=== PATIENT | female | born 1980 | race Caucasian/White ===

== ENCOUNTER 2019-01-14 12:56 | Emergency (ER) | payer OTHER, SELFPAY ==
--- NOTE | 2019-01-14 14:01 | EDM.PDOC ---
ED HPI GENERAL MEDICAL PROBLEM - General Chief Complaint: Head Injury Stated Complaint: FELL TWO WEEKS AGO AND INJURED HEAD Time Seen by Provider: 01/14/19 13:18 Source of Information: Reports: Patient, RN Notes Reviewed History Limitations: Reports: No Limitations - History of Present Illness INITIAL COMMENTS - FREE TEXT/NARRATIVE: Patient is a 38-year-old female who presents to the ED for the evaluation of a head injury. The patient states that roughly 2 weeks ago she fell in her garage and ended up hitting her Cipro scalp on the cement floor. She denies any loss of consciousness but did see stars directly after the incident. She was somewhat nauseous after this fall but did not have any vomiting. Patient has noticed a dull ache in this area and around 5 out of 10 every day however the pain worsened today and is now an 8 out of 10. The pain is located mainly in the base of her skull and the top of her neck. She denies any blurred vision , double vision, headaches, complains more of just a pressure in this area. She denies any chance of being and she's had a hysterectomy. She took a few doses of ibuprofen a day or 2 after the accident but has not taken any sort of pain medications for this since then. The present in the room appreciates that she is acting normal for herself. Posterior Head Pain Score (Numeric/FACES): 8 - Related Data Allergies Allergy/AdvReac Type Severity Reaction Status Date / Time No Known Allergies Allergy Verified 01/14/19 13:27 Home Meds: Home Meds Albuterol [Ventolin HFA] 01/14/19 [History] Orphenadrine [Norflex] 100 mg PO BID PRN #20 tab 01/14/19 [Rx] predniSONE [Deltasone] 20 mg PO ASDIRECTED #15 tablet 01/14/19 [Rx] Past Medical History Other HEENT History: deviated septum Cardiovascular History: Reports: None Respiratory History: Reports: Asthma, COPD Gastrointestinal History: Reports: None Genitourinary History: Reports: None Other CARE TRAINER History: hysterectomy Musculoskeletal History: Reports: None Neurological History: Reports: None Psychiatric History: Reports: None Other Endocrine/Metabolic History: lympnode removal Hematologic History: Reports: None Immunologic History: Reports: None Oncologic (Cancer) History: Reports: Cervix, Lymphoma Dermatologic History: Reports: None ED ROS GENERAL - Review of Systems Review Of Systems: See Below Constitutional: Reports: No Symptoms HEENT: Denies: Dental Pain, Ear Discharge, Ear Pain, Vision Change Respiratory: Denies: Shortness of Breath Cardiovascular: Denies: Chest Pain Endocrine: Reports: No Symptoms GI/Abdominal: Reports: Nausea. Denies: Abdominal Pain, Vomiting Musculoskeletal: Reports: Neck Pain (superior neck pain), Other (occiptial head pain/pressure) Skin: Reports: No Symptoms Neurological: Denies: Confusion, Dizziness, Headache, Pre-Existing Deficit, Seizure, Syncope, Trouble Speaking, Difficulty Walking, Gait Disturbance Psychiatric: Reports: No Symptoms Hematologic/Lymphatic: Reports: No Symptoms ED EXAM, HEAD INJURY - Physical Exam Exam: See Below Exam Limited By: No Limitations General Appearance: Alert, WD/WN, No Apparent Distress Head: Atraumatic, Normocephalic. No: Scalp Ecchymosis, Scalp Hematoma, Villar' s Sign, Raccoon Eyes Nexus Criteria: Posterior, Midline Cervical Tenderness (she noted there was a twinge of pain at palpation of superior cervical spine). No: Evidence of Intoxication, Altered Level of Consciousness, Focal Neurological Deficit, Painful Distraction Injuries Eyes: Bilateral Eye: EOMI, Normal Inspection, PERRL Ears: Normal External Exam, Normal Canal, Hearing Grossly Normal, Normal TMs Nose: Normal Inspection, Normal Mucousa, No Blood Throat/Mouth: Normal Inspection, Normal Lips, Normal Teeth, Normal Gums, Normal Oropharynx, Normal Voice, No Airway Compromise Neck: Non-Tender, Full Range of Motion (pt states that she feels "pulling" in the posterior neck when she nods her head both up and down.), Normal Alignment, Normal Inspection, Muscle Spasm, Tender Midline (superior C spine) Respiratory: No Respiratory Distress, Lungs Clear, Normal Breath Sounds, No Accessory Muscle Use, Chest Non-Tender Cardiovascular: Normal Peripheral Pulses, Regular Rate, Rhythm, No Murmur GI/Abdominal Exam: Normal Bowel Sounds, Soft, Non-Tender, No Distention, No Mass Back Exam: Normal Inspection, Full Range of Motion Extremities: Normal Inspection, Normal Capillary Refill Neurologic: supervisor inspection and testing II-XII nml As Tested, No Motor/Sensory Deficits, Alert, Normal Mood/Affect, Oriented x 3 Skin: Normal Color, Warm/Dry - Santiago Coma Score Best Eye Response (Santiago): (4) Open Spontaneously Best Verbal Response (Sharon): (5) Oriented Best Motor Response (Santiago): (6) Obeys Commands Sharon Total: 15 Course - Vital Signs Last Recorded V/S: Last Vital Signs Temp 96.7 F 01/14/19 13:23 Pulse 85 01/14/19 13:23 Resp 18 01/14/19 13:23 BP 147/77 H 01/14/19 13:23 Pulse Ox 97 01/14/19 13:23 - Orders/Labs/Meds Orders: Active Orders 24 hr Category Date Time Status Cervical Spine wo Cont [CT] Stat Exams 01/14/19 13:54 Ordered Head wo Cont [CT] Stat Exams 01/14/19 13:54 Ordered Meds: Medications Discontinued Medications Generic Name Dose Route Start Last Admin Trade Name Henrry PRN Reason Stop Dose Admin Ketorolac Tromethamine 60 mg 01/14/19 14:53 Toradol IM 01/14/19 14:54 ONETIME ONE Orphenadrine Citrate 100 mg 01/14/19 14:53 Norflex PO 01/14/19 14:54 ONETIME ONE - Re-Assessments/Exams Free Text/Narrative Re-Assessment/Exam: 01/14/19 14:02 Patient presents to the ED for the evaluation of a head injury. Patient took only a small dose ibuprofen after the initial fall. She has not taken much ibuprofen since then. Although there is low suspicion for any sort of fracture at this time or other acute abnormality, the insists on having imaging done of the patient's head and neck to make sure there is no acute abnormalities that are being overlooked. I did discuss the benefits and risks of increased radiation, and they are willing to accept the risk and do want the CT done of the head and neck to rule out any abnormalities. 01/14/19 15:01 CT is done, and demonstrate no acute abnormality of the head or neck, there is mild degenerative disc disease of the cervical spine noted. I did order 60 mg IM Toradol and 100 mg by mouth Norflex for initial management regarding her pain after normal imaging results. Departure - Departure Time of Disposition: 15:17 Disposition: Home, Self-Care 01 Condition: Fair Clinical Impression: Neck pain, Arthritis of neck Head injury, acute Qualifiers: Encounter type: initial encounter Qualified Code(s): S09.90XA - Unspecified injury of head, initial encounter - Discharge Information *PRESCRIPTION DRUG MONITORING PROGRAM REVIEWED*: No *COPY OF PRESCRIPTION DRUG MONITORING REPORT IN PATIENT RENE: No Prescriptions: Orphenadrine [Norflex] 100 mg PO BID PRN #20 tab PRN Reason: Spasms predniSONE [Deltasone] 20 mg PO ASDIRECTED #15 tablet Instructions: Musculoskeletal Pain Referrals: Yessenia Morillo PA-C [Primary Care Provider] - Forms: ED Department Discharge Additional Instructions: You were evaluated in the ED today for your head injury and neck pain. Imaging done today or appreciates no acute abnormalities in the head or neck, but did reveal some mild arthritic-like changes in the neck. You were given some medications for this, a muscle relaxer, Norflex please take one tab twice a day as needed for also spasms. Prednisone as directed until the course is done for inflammation relief. These were electronically sent to the pharmacy located near [facility]. You may also try heat packs or ice packs to the area to see if this does not help provide further relief, or try massage therapy. Please return to the ED if your symptoms should change or worsen. - My Orders Last 24 Hours: My Active Orders 01/14/19 13:54 Cervical Spine wo Cont [CT] Stat Head wo Cont [CT] Stat - Assessment/Plan Last 24 Hours: My Active Orders 01/14/19 13:54 Cervical Spine wo Cont [CT] Stat Head wo Cont [CT] Stat
[2019-01-14] MEDS ORDERED: Orphenadrine 100 MG Tab.ER PO ONE (14:53)
[2019-01-14] MEDS ORDERED: Ketorolac 60 MG/2 ML SDV IM ONE (14:53)
--- NOTE | 2019-01-18 08:48 | CT ---
Head CT Technique: Multiple axial sections through the brain were obtained. Intravenous contrast was not utilized. Comparison: No prior intracranial imaging. Findings: Ventricles along with basal cisterns and sulci over the convexities are within normal limits for the patient's age. No abnormal parenchymal densities are seen. No evidence of intracranial hemorrhage. No midline shift or mass effect is seen. Bone window settings were reviewed which show no acute calvarial abnormality. Visualized mastoid and paranasal sinuses are clear. Impression: 1. Nothing acute is appreciated on noncontrast head CT exam. Diagnostic code #1 I agree with preliminary report from [facility], finalized on 01/14/19, 3:36 PM Central Time
--- NOTE | 2019-01-18 08:48 | CT ---
CT cervical spine Technique: Multiple axial sections were obtained from above C1 inferiorly to the top of T3. Reconstructed sagittal and coronal images were reviewed. Comparison: No prior cervical spine imaging. Findings: Moderate disc space narrowing is noted at C4-C5, C5-C6 and C6-C7. Mild disc space narrowing is noted posteriorly at C7-T1. Slight posterior osteophytes are seen at C5-C6 and more prominent at C6-C7. Mild anterior osteophytes are noted at C5-C6 and C6-C7. Slight kyphosis is noted within the cervical spine on the reconstructed sagittal images. No fracture is identified. Mild narrowing of the right neural foramen is noted at C5-C6. Slightly inhomogeneous appearance of the right lobe of the thyroid gland which is nonspecific. Impression: 1. Findings believed to be incidental as noted above. 2. Nothing acute is appreciated on CT study of the cervical spine. Diagnostic code #2 I agree with preliminary report from [facility], finalized on 01/14/19, 3:50 PM Central Time
== END 2019-01-14 15:38 | disposition home or self-care (01) ==
LOC: JD.ED 12:56
DX: S09.90XA Unspecified injury of head, initial encounter (principal); M46.92 Unspecified inflammatory spondylopathy, cervical region; J44.9 Chronic obstructive pulmonary disease, unspecified; Z79.899 Other long term (current) drug therapy; Z85.41 Personal history of malignant neoplasm of cervix uteri; Z85.72 Personal history of non-Hodgkin lymphomas; Z90.710 Acquired absence of both cervix and uterus; W19.XXXA Unspecified fall, initial encounter; W22.8XXA Striking against or struck by other objects, initial encounter
CPT/HCPCS: 70450; 72125; 96372; 99283; A9270; J1885

== ENCOUNTER 2022-06-12 09:49 | Observation (INO) | payer BC, OTHER ==
[2022-06-12] MEDS ORDERED: Sodium Chloride 0.9% 1,000 ML IV ONE (11:56)
[2022-06-12] MEDS ORDERED: Levofloxacin/Dextrose 5%-Water 750 MG in Premix Bag 1 BAG IV ONE (13:42)
[2022-06-12] MEDS ORDERED: HYDROmorphone 0.5 MG/0.5 ML Syringe IVPUSH ONE (13:42)
[2022-06-12] MEDS ORDERED: metroNIDAZOLE/Normal Saline 500 MG in Premix Bag 1 BAG IV ONE (13:42)
[2022-06-12] MEDS ORDERED: Ondansetron 4 MG/2 ML SDV IVPUSH ONE (13:42)
[2022-06-12] MEDS ORDERED: Ondansetron 4 MG Tab.DIS PO PRN (14:40)
[2022-06-12] MEDS ORDERED: oxyCODONE 5 MG Tab PO PRN (14:40)
[2022-06-12] MEDS: HYDROmorphone 0.5 MG/0.5 ML Syringe IVPUSH PRN ×2 (18:16→20:47)
[2022-06-12] MEDS: Acetaminophen 325 MG Tab PO SCH ×3 (18:16→22:19)
[2022-06-12] MEDS: Heparin Sodium 5,000 Units/ML Vial SUBCUT SCH ×2 (18:18→23:12)
[2022-06-12] MEDS ORDERED: traZODone 50 MG Tab PO PRN (19:09)
[2022-06-12] MEDS: Lactated Ringers 1,000 ML IV SCH (20:46)
[2022-06-12] MEDS ORDERED: Famotidine 20 MG Tab PO SCH (21:00)
[2022-06-12] MEDS: metroNIDAZOLE/Normal Saline 500 MG in Premix Bag 1 BAG IV SCH (21:00)
[2022-06-13] MEDS: Acetaminophen 325 MG Tab PO SCH ×2 (02:03→06:12)
[2022-06-13] MEDS: Lactated Ringers 1,000 ML IV SCH (02:04)
[2022-06-13] MEDS: metroNIDAZOLE/Normal Saline 500 MG in Premix Bag 1 BAG IV SCH (06:12)
[2022-06-13] MEDS ORDERED: Montelukast 10 MG Tab PO SCH (09:00)
[2022-06-13] MEDS ORDERED: Cetirizine 10 MG Tab PO SCH (09:00)
[2022-06-13] MEDS ORDERED: Fluticasone NASAL Spray 16 GM Bottle NAS SCH (09:00)
[2022-06-13] MEDS ORDERED: LISDEXAMFETAMINE 30 MG PO SCH (09:00)
== END 2022-06-13 08:33 | disposition home or self-care (01) ==
LOC: JD.ED 09:49 → JD.MS 14:25
PROVIDERS: ADMIT Surgery; ATTEND Surgery
DX: K57.20 Diverticulitis of large intestine with perforation and abscess without bleeding (principal); J44.9 Chronic obstructive pulmonary disease, unspecified; Z79.899 Other long term (current) drug therapy; Z98.890 Other specified postprocedural states
CPT/HCPCS: 36415; 74176; 80048; 80053; 81001; 83690; 85025; 86140; 99285; A9270; J1170; J1644; J1956; J2405; J3490; J7030; J7120

== ENCOUNTER 2022-10-26 03:36 | Emergency (ER) | payer BC, OTHER ==
[2022-10-26] MEDS ORDERED: Sodium Chloride 0.9% 10 ML Syringe FLUSH PRN (04:20)
[2022-10-26 04:29] LABS: BASOPHILS ABSOLUTE AUTO 0.05 K/mm3 (0.01-0.08); BASOPHILS PERCENT AUTO 0.4 % (0.1-1.2); EOSINOPHILS ABSOLUTE AUTO 0.15 K/mm3 (0.04-0.36); EOSINOPHILS PERCENT AUTO 1.2 (0.7-5.8); HEMATOCRIT 38.2 % (34.1-44.9); HEMOGLOBIN 12.9 gm/dl (11.2-15.7); IMMATURE GRAN ABSOLUTE AUTO 0.01 K/mm3 (0.00-0.10); IMMATURE GRAN PERCENT AUTO 0.1 % (<=1.0); LYMPHOCYTES ABSOLUTE AUTO 2.16 K/mm3 (1.18-3.74); LYMPHOCYTES PERCENT AUTO 16.6 % (19.3-51.7); MEAN CORPUSCULAR HEMOGLOBIN 29.7 pg (25.6-32.2); MEAN CORPUSCULAR HGB CONC 33.8 g/dl (32.2-35.5); MEAN CORPUSCULAR VOLUME 87.8 fl (79.4-94.8); MEAN PLATELET VOLUME 11.1 fl (9.4-12.3); MONOCYTES ABSOLUTE AUTO 0.87 K/mm3 (0.24-0.36); MONOCYTES PERCENT AUTO 6.7 % (4.7-12.5); PLATELET COUNT,PLT 257 K/mm3 (182-369); RED BLOOD CELL COUNT 4.35 M/mm3 (3.98-5.22); WHITE BLOOD CELL COUNT,WBC 13.04 K/mm3 (3.98-10.04)
[2022-10-26 04:43] LABS: ALBUMIN 3.6 g/dl (3.4-5.0); BILIRUBIN TOTAL 0.3 mg/dL (0.2-1.0); C-REACTIVE PROTEIN 1.2 mg/dL (<1.0); CALCIUM 8.5 mg/dL (8.5-10.1); EST CRCL DRUG DOSING (CG) 76.59 mL/min; MAGNESIUM 1.9 mg/dL (1.8-2.4); PROTEIN TOTAL,TP 7.3 g/dl (6.4-8.2)
[2022-10-26] MEDS ORDERED: Lactated Ringers 500 ML IV ONE (04:46)
[2022-10-26] MEDS ORDERED: Ondansetron 4 MG/2 ML SDV IVPUSH ONE (04:46)
[2022-10-26] MEDS ORDERED: Morphine 2 MG/ML SYRINGE IVPUSH ONE ×2 (04:46→05:26)
[2022-10-26] MEDS ORDERED: Iopamidol 612 MG/ML 100 ML Bottle IVPUSH ONE (04:52)
[2022-10-26] MEDS ORDERED: Lactated Ringers 1,000 ML IV SCH (05:00)
[2022-10-26] MEDS ORDERED: metroNIDAZOLE 500 MG Tab PO ONE (06:29)
[2022-10-26] MEDS ORDERED: Levofloxacin 750 MG Tab PO ONE (06:30)
[2022-10-26] MEDS ORDERED: Acetaminophen/HYDROcodone 325-5 MG Tab PO ONE (06:33)
[2022-10-26] MEDS ORDERED: Ondansetron 4 MG Tab.DIS PO ONE (06:34)
== END 2022-10-26 07:06 | disposition home or self-care (01) ==
LOC: JD.ED 03:36
DX: K57.32 Diverticulitis of large intestine without perforation or abscess without bleeding (principal); Z79.899 Other long term (current) drug therapy
CPT/HCPCS: 36415; 74177; 80053; 83690; 83735; 85025; 86140; 96361; 96374; 96375; 96376; 99284; A9270; J2270; J2405; J7120; Q9967

== ENCOUNTER 2022-11-26 22:12 | Emergency (ER) | payer OTHER ==
[2022-11-27] MEDS ORDERED: Sodium Chloride 0.9% 1,000 ML IV ONE (00:51)
[2022-11-27] MEDS ORDERED: Ondansetron 4 MG/2 ML SDV IVPUSH ONE (00:51)
[2022-11-27] MEDS ORDERED: Morphine 4 MG/ML Syringe IVPUSH ONE (00:51)
[2022-11-27 01:15] LABS: BASOPHILS ABSOLUTE AUTO 0.04 K/mm3 (0.01-0.08); BASOPHILS PERCENT AUTO 0.2 % (0.1-1.2); EOSINOPHILS ABSOLUTE AUTO 0.08 K/mm3 (0.04-0.36); EOSINOPHILS PERCENT AUTO 0.4 (0.7-5.8); HEMATOCRIT 38.5 % (34.1-44.9); HEMOGLOBIN 13.1 gm/dl (11.2-15.7); IMMATURE GRAN ABSOLUTE AUTO 0.03 K/mm3 (0.00-0.10); IMMATURE GRAN PERCENT AUTO 0.2 % (<=1.0); LYMPHOCYTES ABSOLUTE AUTO 2.58 K/mm3 (1.18-3.74); LYMPHOCYTES PERCENT AUTO 13.9 % (19.3-51.7); MEAN CORPUSCULAR HEMOGLOBIN 29.2 pg (25.6-32.2); MEAN CORPUSCULAR VOLUME 85.9 fl (79.4-94.8); MEAN PLATELET VOLUME 9.9 fl (9.4-12.3); MONOCYTES ABSOLUTE AUTO 0.77 K/mm3 (0.24-0.36); MONOCYTES PERCENT AUTO 4.2 % (4.7-12.5); NEUTROPHILS ABSOLUTE AUTO 15.04 K/mm3 (1.56-6.13); NEUTROPHILS PERCENT AUTO 81.1 % (34.0-71.1); PLATELET COUNT,PLT 252 K/mm3 (182-369); RED BLOOD CELL COUNT 4.48 M/mm3 (3.98-5.22); WHITE BLOOD CELL COUNT,WBC 18.54 K/mm3 (3.98-10.04)
[2022-11-27] MEDS ORDERED: Iopamidol 612 MG/ML 100 ML Bottle IVPUSH ONE (01:29)
[2022-11-27 01:32] LABS: ALBUMIN 3.8 g/dl (3.4-5.0); ANION GAP 11.8 (5-15); BILIRUBIN TOTAL 0.8 mg/dL (0.2-1.0); BUN/CREATININE RATIO 11.1 (14-18); CALCIUM 9.1 mg/dL (8.5-10.1); CREATININE 0.9 mg/dL (0.55-1.02); EST CRCL DRUG DOSING (CG) 85.1 mL/min; POTASSIUM,K 3.8 mEq/L (3.5-5.1); PROTEIN TOTAL,TP 7.5 g/dl (6.4-8.2)
[2022-11-27] MEDS ORDERED: Piperacillin/Tazobactam 4.5 GM in Sodium Chloride 0.9% 100 ML IV ONE (02:02)
[2022-11-27] MEDS ORDERED: metroNIDAZOLE/Normal Saline 500 MG in Premix Bag 1 BAG IV SCH (02:15)
[2022-11-27 06:36] LABS: BASOPHILS ABSOLUTE AUTO 0.04 K/mm3 (0.01-0.08); BASOPHILS PERCENT AUTO 0.2 % (0.1-1.2); EOSINOPHILS ABSOLUTE AUTO 0.07 K/mm3 (0.04-0.36); EOSINOPHILS PERCENT AUTO 0.4 (0.7-5.8); HEMATOCRIT 35.9 % (34.1-44.9); IMMATURE GRAN ABSOLUTE AUTO 0.03 K/mm3 (0.00-0.10); IMMATURE GRAN PERCENT AUTO 0.2 % (<=1.0); LYMPHOCYTES ABSOLUTE AUTO 2.17 K/mm3 (1.18-3.74); LYMPHOCYTES PERCENT AUTO 12.3 % (19.3-51.7); MEAN CORPUSCULAR HEMOGLOBIN 28.8 pg (25.6-32.2); MEAN CORPUSCULAR HGB CONC 33.4 g/dl (32.2-35.5); MEAN CORPUSCULAR VOLUME 86.3 fl (79.4-94.8); MEAN PLATELET VOLUME 9.9 fl (9.4-12.3); MONOCYTES ABSOLUTE AUTO 1.05 K/mm3 (0.24-0.36); NEUTROPHILS ABSOLUTE AUTO 14.27 K/mm3 (1.56-6.13); NEUTROPHILS PERCENT AUTO 80.9 % (34.0-71.1); PLATELET COUNT,PLT 218 K/mm3 (182-369); RED BLOOD CELL COUNT 4.16 M/mm3 (3.98-5.22); WHITE BLOOD CELL COUNT,WBC 17.63 K/mm3 (3.98-10.04)
== END 2022-11-27 07:27 | disposition still patient (30) ==
LOC: JD.ED 22:12
DX: K57.92 Diverticulitis of intestine, part unspecified, without perforation or abscess without bleeding (principal); J45.909 Unspecified asthma, uncomplicated; Z91.040 Latex allergy status; Z79.899 Other long term (current) drug therapy
CPT/HCPCS: 36415; 74177; 80053; 85025; 96365; 96368; 96375; 99284; J2270; J2405; J2543; J3490; J7030; Q9967